=== PATIENT | female | born 1980 ===

== ENCOUNTER 2018-11-23 10:05 | Emergency (ER) | payer OTHER ==
[2018-11-23] MEDS ORDERED: Sodium Chloride 0.9% 1,000 ML IV ONE ×2 (10:52→11:15)
[2018-11-23 11:32] LABS: BASO # 0.1 K/uL (0.0-0.2); BASO % 0.6 % (0.0-2.0); EOS # 0.1 K/uL (0.0-0.7); EOS % 0.6 % (0.0-4.0); HEMOGLOBIN 12.4 g/dL (12.0-16.0); LYMPH % 21.6 % (20.0-40.0); MEAN CELL VOLUME 90.4 fl (81.0-99.0); MEAN CORPUSCULAR HEMOGLOBIN 30.3 pg (27.0-31.0); MEAN CORPUSCULAR HGB CONC 33.6 g/dL (33.0-37.0); MEAN PLATELET VOLUME 6.8 fl (7.2-11.7); MONO # 0.5 K/uL (0.0-0.8); MONO % 5.2 % (0.0-10.0); NEUT # 6.7 K/uL (1.8-7.0); RBC 4.07 Mil/uL (3.80-5.20); RED CELL DISTRIBUTION WIDTH 14.1 % (11.5-14.5); WHITE BLOOD COUNT 9.4 K/uL (4.8-10.8)
[2018-11-23 11:37] LABS: BLOOD UREA NITROGEN 8 mg/dl (7-17); CALCIUM 9.4 mg/dL (8.4-10.2); GFR NON-AFRICAN AMERICAN > 60
[2018-11-23 11:44] VITALS: RESP 16; O2SAT 100
--- NOTE | 2018-11-23 11:56 | ED PDOC ---
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 Of note, patient has a history of kidney stones and she reports her last one was three years ago in [place] which was treated with lithotripsy. Reports her symptoms now are similar to then, and only minimally relieved by Tylenol, last dose yesterday night. Otherwise denies nausea, vomiting, and hematuria. Additionally, she states she has had hemorrhoids for a while now which have remained painful. She also reports last BM was 4 days ago due to hemorrhoid pain and constipation that she deals with for a long time. Pt denies bleeding or melena. LNMP: 10/30/18 PMD: none provided Past Medical History Reviewed: Historical Data Vital Signs: Last Vital Signs Temp 97 F L 11/23/18 10:40 Pulse 71 11/23/18 10:40 Resp 16 11/23/18 10:40 BP 117/78 11/23/18 10:40 Pulse Ox 100 11/23/18 10:40 - Medical History PMH: Kidney Stones - Surgical History Surgical History: (x1) Other surgeries: lithotripsy - Family History Family History: States: Unknown Family Hx - Social History Current smoker - smoking cessation education provided: No Alcohol: None Drugs: Denies - Home Medications Home Medications: Ambulatory Orders Medication Instructions Recorded Cephalexin [Keflex] 500 mg PO QID 10 Days #40 capsule 11/23/18 Hydrocortisone 2.5% (Rectal) 30 applic SD BID #1 tube 11/23/18 [Anusol-HC] Naproxen 500 mg PO BID PRN #20 tab 11/23/18 Polyethylene Glycol 3350 [Miralax] 17 gm PO DAILY PRN #100 ml 11/23/18 Sod Phos,M-B/Na Phos,Di-Ba [Fleet 133 ml RC ONCE #1 enema 11/23/18 Enema] - Allergies Allergies/Adverse Reactions: Allergies Allergy/AdvReac Type Severity Reaction Status Date / Time No Known Allergies Allergy Verified 11/23/18 10:40 Review of Systems ROS Statement: Except As Marked, All Systems Reviewed And Found Negative Gastrointestinal: Positive for: Abdominal Pain (right lower), Rectal Pain (painful hemorrhoids, non-bloody). Negative for: Nausea, Vomiting, Melena Genitourinary Female: Positive for: Dysuria, Other (decreased urination, urinary hesitancy) Musculoskeletal: Positive for: Back Pain (right sided) Physical Exam - Reviewed Nursing Documentation Reviewed: Yes Vital Signs Reviewed: Yes - Physical Exam Comments: GENERAL APPEARANCE: Patient is awake, alert, oriented x 3, well appearing, and in NAD. SKIN: Warm, dry; (-) cyanosis. EYES: (-) conjunctival pallor, (-) scleral icterus. ENMT: Mucous membranes moist. NECK: (-) tenderness, (-) stiffness, (-) lymphadenopathy. CHEST AND RESPIRATORY: (-) rales, (-) rhonchi, (-) wheezes; breath sounds equal bilaterally. HEART AND CARDIOVASCULAR: (-) irregularity; (-) murmur, (-) gallop. ABDOMEN AND GI: (-) distention. Bowel sounds active; (+) very mild RLQ tenderness, (-) guarding, (-) rebound, (-) palpable masses. Negative: obturator, Rovsing, psoas, and McBurney signs. BACK: (+) right CVA tenderness, (-) left CVA tenderness. EXTREMITIES: (-) deformity, (-) edema, (+) distal pulses.\ RECTAL: (+) 2 small tender external hemorrhoids at 3 and 9 o'clock position, no bleeding, no surrounding erythema or signs of infection NEURO AND PSYCH: Mental status as above; (-) focal findings. - Laboratory Results Result Diagrams: 11/23/18 11:25 11/23/18 11:25 - ECG O2 Sat by Pulse Oximetry: 100 (RA) Pulse Ox Interpretation: Normal Medical Decision Making Medical Decision Making: Time: 1051 Initial Impression: kidney stone workup Initial Plan: --CT abd/pelvis w/o contrast --BMP --U-preg --CBC with differential --Normal saline IV --Toradol 30mg IVP --Urine culture --Urinalysis --Reevaluation 14:00 CT results reviewed - pt with renal calculi, none obstructing, possibly passed stone, and moderate constipation ON re eval pt is feeling better, pain free at this time, abdomen soft and non tender, no CVAT Pt has friend at bedside providing translation pt with UTI, possibly passed stone, constipation and hemorrhoids - will provide medications for each diagnosis Discussed all results, diagnosis, treatment, return precautions and f/u with pt who is understanding, in agreement and stable for dc Scribe Attestation: Documented by Yue Kent, acting as a scribe for Trent Blackwood PA-C. Provider Scribe Attestation: All medical record entries made by the Scribe were at my direction and personally dictated by me. I have reviewed the chart and agree that the record accurately reflects my personal performance of the history, physical exam, medical decision making, and the department course for this patient. I have also personally directed, reviewed, and agree with the discharge instructions and disposition. Disposition - Clinical Impression Clinical Impression: Urinary tract infection, Renal calculus or stone, Constipation, Hemorrhoids - Patient ED Disposition Is Patient to be Admitted: No Counseled Patient/Family Regarding: Studies Performed, Diagnosis, Need For Followup, Rx Given - Disposition Referrals: [facility] [Outside] Disposition: Routine/Home Disposition Time: 14:15 Condition: IMPROVED Additional Instructions: Volver a la ED para los sntomas nuevos o empeoramiento, fiebre > 100,4, aumento del dolor, vmitos. Seguimiento con la clnica malik se indica en 3-5 [place]. [place] los antibiticos segn lo prescrito hasta que termine. [place] los medicamentos segn lo prescrito. Miriam manoj agua y silvano dieta fabian en fibra. Return to ED for new or worsening symptoms, fever >100.4, increasing pain, vomiting. Follow up w ith the clinic as listed in 3-5 days. Take antibiotics as prescribed until finished. Take medications as prescribed. Drink plenty of water and high fiber diet. Prescriptions: Cephalexin [Keflex] 500 mg PO QID 10 Days #40 capsule Hydrocortisone 2.5% (Rectal) [Anusol-HC] 30 applic SD BID #1 tube Naproxen 500 mg PO BID PRN #20 tab PRN Reason: Pain, Moderate (4-7) Polyethylene Glycol 3350 [Miralax] 17 gm PO DAILY PRN #100 ml PRN Reason: Constipation Sod Phos,M-B/Na Phos,Di-Ba [Fleet Enema] 133 ml RC ONCE #1 enema Instructions: Urinary Tract Infections in Adults, Kidney Stones in Adults, Constipation in Adults, Hemorrhoids (DC) Forms: [employer] ([place]) Print Language: KOREAN - POA Present On Arrival: None Results - Diagnostic Imaging Results Radiology Results Abdomen/Pelvis CT 11/23/18 10:51 IMPRESSION: Punctate calcification seen in the upper-mid pole collecting system right kidney and an approximately 2 mm calculus upper pole left kidney.. There appears to be columnization of the right ureter with slightly prominent urothelium with an some vague infiltration in the adjacent mesentery at several locations. Rule out recently passed calculus or possibly ascending UTI. No definitive evidence of ureteral calculi are identified. Findings consistent with constipation. - Lab Results Lab Results: 11/23/18 11/23/18 11/23/18 11:38 11:25 11:25 WBC 9.4 RBC 4.07 Hgb 12.4 Hct 36.8 MCV 90.4 MCH 30.3 MCHC 33.6 RDW 14.1 Plt Count 312 MPV 6.8 L Neut % (Auto) 72.0 Lymph % (Auto) 21.6 [place] % (Auto) 5.2 Eos % (Auto) 0.6 Baso % (Auto) 0.6 Neut # (Auto) 6.7 Lymph # (Auto) 2.0 [place] # (Auto) 0.5 Eos # (Auto) 0.1 Baso # (Auto) 0.1 Sodium 140 Potassium 4.6 Chloride 105 Carbon Dioxide 29 Anion Gap 11 BUN 8 Creatinine 0.6 L Est GFR ( Amer) > 60 Est GFR (Non-Af Amer) > 60 Random Glucose 94 Calcium 9.4 Urine Color Yellow Urine Clarity Cloudy Urine pH 5.0 Ur Specific [place] 1.017 Urine Protein Negative Urine Glucose (UA) Neg Urine Ketones Negative Urine Blood Large Urine Nitrate Negative Urine Bilirubin Negative Urine Urobilinogen 0.2-1.0 Ur Leukocyte Esterase Large Urine RBC (Auto) 45 H Urine WBC Clumps (Auto) Few H Urine Microscopic WBC 1292 H Ur Squamous Epith Cells 1 Urine Bacteria Occ H Urine Yeast (Budding) Few H
[2018-11-23 12:01] LABS: SQUAMOUS EPITHIAL 1 /hpf (0-5); URINE BACTERIA OCC (<OCC); URINE BILIRUBIN NEGATIVE (NEGATIVE); URINE BLOOD LARGE (NEGATIVE); URINE CLARITY CLOUDY (Clear); URINE COLOR YELLOW (YELLOW); URINE GLUCOSE (UA) NEG (NEGATIVE); URINE LEUKOCYTE ESTERASE LARGE Leu/uL (Negative); URINE PROTEIN NEGATIVE (NEGATIVE); URINE UROBILINOGEN 0.2-1.0 mg/dL (0.2-1.0); WBC CLUMPS FEW /hpf
--- NOTE | 2018-11-23 13:51 | CT ---
Date of service: 11/23/2018 PROCEDURE: CT abdomen pelvis HISTORY: Rule out kidney stones COMPARISON: None. TECHNIQUE: Contiguous axial images of the abdomen and pelvis performed in standard fashion without oral or intravenous contrast material. Additional 2D sagittal and coronal sagittal reformats generated. Radiation dose: Total exam DLP = 524.74 mGy-cm. This CT exam was performed using one or more of the following dose reduction techniques: Automated exposure control, adjustment of the mA and/or kV according to patient size, and/or use of iterative reconstruction technique. FINDINGS: LOWER THORAX: Lung bases clear. Heart size normal. No significant pericardial effusion. Small hiatal hernia with slight wall thickening of the distal esophagus likely due to protrusion of gastric mucosa however esophagitis or other intrinsic wall lesion not excluded LIVER: The liver exhibits normal size and attenuation pattern without mass collection or calcification. GALLBLADDER AND BILE DUCTS: Unremarkable. PANCREAS: Unremarkable. No mass. No ductal dilatation. SPLEEN: Unremarkable. No splenomegaly. ADRENALS: No adrenal lesions. KIDNEYS AND URETERS: The kidneys exhibit relatively symmetric size. There is a punctate calcification seen in the upper-mid pole collecting system right kidney and an approximately 2 mm calculus upper pole left kidney.. There appears to be columnization of the right ureter with slightly prominent urothelium with an some vague infiltration in the adjacent mesentery at several locations. Rule out recently passed calculus or possibly ascending UTI. No definitive evidence of ureteral calculi are identified. BLADDER: Urinary bladder is distended with no evidence of intraluminal urinary bladder calculi. REPRODUCTIVE: Unremarkable. APPENDIX: Normal appendix BOWEL: Evaluation of the bowel is somewhat limited due to the lack of oral contrast material. Stomach is incompletely distended with thick-walled appearance. Visualized loops of small bowel exhibit normal contour and caliber. No evidence of acute mechanical small bowel obstruction.. There is a large amount of stool seen throughout the colon consistent with fecal retention/constipation. Additionally, there also appears to be fecalization of distal small bowel content suggesting stasis. PERITONEUM: Unremarkable. No fluid collection. No free air. Small fat containing umbilical hernia. LYMPH NODES: Unremarkable. No enlarged lymph nodes. VASCULATURE: Unremarkable. No aortic aneurysm. No aortic atherosclerotic calcification or mural plaque present. BONES: No fracture or destructive lesion. OTHER FINDINGS: None. IMPRESSION: Punctate calcification seen in the upper-mid pole collecting system right kidney and an approximately 2 mm calculus upper pole left kidney.. There appears to be columnization of the right ureter with slightly prominent urothelium with an some vague infiltration in the adjacent mesentery at several locations. Rule out recently passed calculus or possibly ascending UTI. No definitive evidence of ureteral calculi are identified. Findings consistent with constipation.
[2018-11-23 14:33] VITALS: BP 110/70; PULSE 76; TEMP 97.3
== END 2018-11-23 14:30 | disposition home or self-care (01) ==
LOC: H.ER 10:05
DX: N39.0 Urinary tract infection, site not specified (principal); N20.0 Calculus of kidney; K59.00 Constipation, unspecified; K64.9 Unspecified hemorrhoids
CPT/HCPCS: 74176; 80048; 81003; 81025; 85025; 87086; 96361; 96374; 99284; J1885; J7030